=== PATIENT | female | born 1970 | race Hispanic/Latino ===

== ENCOUNTER 2017-12-19 18:09 | Emergency (ER) | payer OTHER ==
[~2017-12-19] VITALS: Ht 157.5 cm; Wt 62.5 kg
[2017-12-19 20:14] LABS: BASOPHIL (%) 0.5 % (0-1); EOSINOPHIL COUNT 0.2 K/uL (0-0.3); HEMATOCRIT 39.6 % (36.0-46.0); HEMOGLOBIN 13.2 G/DL (11.9-15.5); IMMATURE GRANULOCYTE (%) 0.3 % (0.0-0.7); LYMPHOCYTE (%) 32.2 % (15-42); LYMPHOCYTE COUNT 2.1 K/uL (1.0-2.8); MCH 28.3 PG (29.0-34.0); MCHC 33.3 G/DL (30.0-36.0); MCV 84.8 FL (83-99); MONOCYTE (%) 7.2 % (3-12); MONOCYTE COUNT 0.5 K/uL (0-0.8); NEUTROPHIL (%) 56.8 % (45-76); NEUTROPHIL COUNT 3.8 K/uL (1.8-6.4); PLATELET COUNT 235 K/uL (156-360); RBC DIS.WIDTH-CV 13.2 % (11.8-14.6); RBC DIS.WIDTH-SD 40.7 % (39-53); RED BLOOD COUNT 4.67 M/uL (3.80-5.20); WHITE BLOOD COUNT 6.7 K/uL (4.1-10.2)
[2017-12-19 20:24] LABS: ALBUMIN 4.4 g/dL (3.2-4.8); CHLORIDE 108 mEq/L (99-109); POTASSIUM 4.1 mEq/L (3.7-5.4); SODIUM 141 mEq/L (136-147)
[2017-12-19 20:27] LABS: GLUCOSE 100 mg/dL (70-99); TOTAL PROTEIN 7.8 g/dL (6.4-8.3)
[2017-12-19 20:29] LABS: TOTAL BILIRUBIN 0.2 mg/dL (0.0-1.0)
[2017-12-19 20:30] LABS: ALKALINE PHOSPHATASE 82 IU/L (3-129)
[2017-12-19 20:31] LABS: CREATININE 0.8 mg/dL (0.6-1.3); GFR ESTIMATE (CALCULATED) > 59 mL/min/
[2017-12-19 20:32] LABS: AST (GOT) 14 IU/L (2-34); DIRECT BILIRUBIN 0.1 mg/dL (0.0-0.3); UREA NITROGEN (BUN) 16 mg/dL (9-23)
[2017-12-19 20:33] LABS: ALT (GPT) 12 IU/L (3-49)
[2017-12-19] MEDS ORDERED: PREDNISONE20 MG PO (21:48)
[2017-12-19] MEDS ORDERED: BENADRYL50 MG PO (21:48)
[2017-12-19] MEDS ORDERED: ZANTAC150 MG PO (21:48)
[2017-12-19] MEDS ORDERED: EPIPEN ADU0.3 MG/0.3 IM (21:51)
[2017-12-19 21:56] VITALS: BP 122/88
[2017-12-20 10:29] LABS: LYME DISEASE SEROLOGY SCREEN NEGATIVE (NEGATIVE)
[2017-12-22 16:16] LABS: Rickettsia (RMSF) IgG Not Detected (Not Detected); Rickettsia (RMSF) IgM Not Detected (Not Detected)
[2017-12-24 11:58] LABS: E.chaffeensis IgG <1:64
[2017-12-24 11:59] LABS: E.chaffeensis IgM <1:20
== END 2017-12-19 21:57 | disposition home or self-care (01) ==
LOC: EME 18:09
PROVIDERS: Physician Assistant
DX: S70.362A Insect bite (nonvenomous), left thigh, initial encounter (principal); W57.XXXA Bitten or stung by nonvenomous insect and other nonvenomous arthropods, initial encounter; T78.40XA Allergy, unspecified, initial encounter; R21 Rash and other nonspecific skin eruption; R22.0 Localized swelling, mass and lump, head; R11.0 Nausea
CPT/HCPCS: 80048; 80076; 85025; 86618; 86666 90; 86757 90; 99281; 99283; J7512